=== PATIENT | female | born 1950 | race Caucasian/White ===

== ENCOUNTER → 2016-09-25 | Outpatient (CLI) | payer MEDICARE, BC ==
[~2016-09-25] MED LIST: ASPI-730 PO; BENZ100C97 PO; CHLO4TAB32 PO; CODE118S2 PO; ERGO400C; FLUT16SP EA NOSTRIL; GUAI120L62 PO; HYDR-2164 PO; IBUP-1454 PO; LEVO25TA4 PO; MAGN400C PO; METF500T4 PO; OMEP20TA11 PO; PRED50TA PO
--- NOTE | 2016-09-26 08:38 | DI ---
INDICATION: ITS.REASON: bronchitis w/ wheezing, low 02 sat PROCEDURE: CHEST 2-VIEWS UPRIGHT (PA \T\ LAT) Encounter: Initial COMPARISON: November 26, 2013 FINDINGS: The lungs are clear without evidence of focal abnormal airspace opacity. There is no pleural effusion or pneumothorax. The heart size, mediastinal contours and pulmonary vascularity are within normal limits. There is no significant skeletal abnormality. IMPRESSION: No acute cardiopulmonary disease. .
== END ==
LOC: IMA.CCC 19:56
PROVIDERS: ATTEND Nurse Practitioner Family
DX: J40 Bronchitis, not specified as acute or chronic (principal)